=== PATIENT | male | born 2000 | race Caucasian/White ===

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

== ENCOUNTER 2023-11-06 17:40 | Emergency (ER) | payer SELFPAY ==
--- OUTSIDE RECORDS SUMMARY | 2023-11-06 17:46 | XMS REPORT | Continuity of Care Document ---
Author Name Unknown Address [address] [facility] [address] [id number] [facility] Address [address] [facility] [address] [place] [address] Care Team Providers Care Gray Tender Name Role Phone Unavailable Unavailable Unavailable Payers Payer Name Policy Type Policy Number Effective Date Expirati on Date Source Encounters Start Date/Time End Date/Time Encounter Type Admission Type Attending Clinicians Care Facility Care Department Encounter ID Source 2022-05-13 11:14:23 Outpatient [facility] [id number] [facility] 2022-03-07 15:36:00 2022-03-07 15:36:00 Outpatient Dayanna Denton [facility] [id number] [facility]
[2023-11-06] MEDS ORDERED: CYCLOBENZAPRINE 10 MG TAB ONE (18:03)
[2023-11-06] MEDS ORDERED: HYDROCODONE/APAP 5/325 MG TAB ONE (18:03)
--- NOTE | 2023-11-06 19:03 | RAD REPORT ---
EXAM DESCRIPTION: RAD - Shoulder Right 2 View - 11/06/2023 6:21 pm CLINICAL HISTORY: Right shoulder pain FINDINGS: No fracture or dislocation is seen. Small nonspecific sclerotic density right humeral head
--- NOTE | 2023-11-06 19:05 | RAD REPORT ---
EXAM DESCRIPTION: RAD - Lumbar Spine 3 Views - 11/06/2023 6:20 pm CLINICAL HISTORY: Back pain FINDINGS: No fracture or dislocation is seen. No significant bone or joint abnormality is seen Large amount stool throughout the colon
--- NOTE | 2023-11-06 19:51 | EDPHYS ---
Physician Documentation [facility] Name: Ranulfo Clifton Jr Age: 23 yrs Sex: Male : 2000 Arrival Date: 11/06/2023 Time: 17:40 Bed IW1 Private MD: ED Physician Brandon Ramirez HPI: 11/05 23:21 This 23 yrs old Male presents to ER via Ambulatory with complaints of Arm Pain, Back kb Pain, Shoulder Pain. 23:21 Patient is a 23-year-old male who presents for right shoulder pain and low back pain kb that started 1 week ago. States pain is only with movement. States he does not remember any particular injury but does lift heavy objects at work. Full range of motion. Denies numbness or tingling to lower extremities. Ambulates with steady gait.. Historical: - Allergies: 17:58 No Known Allergies; ko1 - Home Meds: 17:58 None [Active]; ko1 - PMHx: 17:58 None; ko1 - PSHx: 17:58 None; ko1 - Immunization history:: Adult Immunizations unknown. - Infectious Disease History:: Denies. - Social history:: Smoking status: Patient denies any tobacco usage or history of. ROS: 19:47 Constitutional: As per HPI kb Exam: 21:52 Constitutional: This is a well developed, well nourished patient who is awake, alert, kb and in no acute distress. Head/Face: Normocephalic, atraumatic. ENT: Moist Mucous membranes Cardiovascular: Regular rate Respiratory: Respirations even and unlabored. No increased work of breathing. Talking in full sentences Abdomen/GI: Soft, non-tender. No distention Skin: Warm, dry with normal turgor. Normal color. Neuro: Awake and alert, GCS 15, oriented to person, place, time, and situation. Moves all extremities. Normal gait. 21:52 Musculoskeletal/extremity: Extremities: grossly normal except: noted in the anterior aspect of right shoulder: pain, 23:21 Back: pain, that is mild, of the lumbar area, kb Vital Signs: 17:56 BP 138 / 88; Pulse 82; Resp 16; Temp 98; Pulse Ox 99% ; ko1 19:48 BP 126 / 72; Pulse 78; Resp 18; Pulse Ox 98% ; ko1 MDM: 17:56 Patient medically screened. kb 23:21 Differential diagnosis: closed fracture, Strain sprain. Data reviewed: vital signs, kb nurses notes. Counseling: I had a detailed discussion with the patient and/or guardian regarding the historical points, exam findings, and any diagnostic results supporting the discharge/admit diagnosis, radiology results, the need for outpatient follow up, a family practitioner, to return to the emergency department if symptoms worsen or persist or if there are any questions or concerns that arise at home. 11/05 18:01 Order name: Lumbar Spine (3 Views) XRAY; Complete Time: 19:08 kb 11/05 18:01 Order name: Shoulder Right (2 View) XRAY; Complete Time: 19:08 kb Administered Medications: 18:02 Drug: HYDROcodone-acetaminophen PO 5 mg-325 mg 1 tabs PO once Route: PO; ko1 18:45 Follow up: Response: No adverse reaction ko1 18:02 Drug: Cyclobenzaprine PO 10 mg PO once Route: PO; ko1 18:45 Follow up: Response: No adverse reaction ko1 Disposition: 19:47 I was immediately available on-site in the Emergency Department for consultation in the ms3 care of the patient. Disposition Summary: 11/06/23 19:51 Discharge Ordered Notes: Location: Home kb Condition: Stable(11/06/23 19:51) kb Diagnosis - Pain in right shoulder kb - Low back pain kb Followup: kb - With: Emergency Department - When: As needed - Reason: Worsening of condition Followup: kb - With: Private Physician - When: 2 - 3 days - Reason: Recheck today's complaints, Continuance of care, Re-evaluation by your physician Discharge Instructions: - Discharge Summary Sheet kb - Musculoskeletal Pain kb Forms: - Medication Reconciliation Form kb - Antibiotic Education kb - Prescription Opioid Use kb - Patient Portal Instructions kb - Leadership Thank You Letter kb Prescriptions: - Diclofenac Sodium 75 mg Oral tablet, delayed release (enteric coated) - take 1 tablet ORAL route 2 times per day As needed; 30 tablet; Refills: 0, kb Product Selection Permitted - orphenadrine citrate 100 mg Oral Tablet Sustained Release - take 1 tablet ORAL route 2 times per day As needed; 20 tablet; Refills: 0, kb Product Selection Permitted Signatures: Dispatcher [employer] Elva Oconnor FNP-C FNP-Ckb Brandon Ramirez DO DO ms3 Taylor Melissa, RN RN ko1 Corrections: (The following items were deleted from the chart) 19:51 19:51 Fair kb kb
--- NOTE | 2023-11-06 19:51 | ER ---
Nurse's Notes [facility] Name: Ranulfo Clifton Jr Age: 23 yrs Sex: Male : 2000 Arrival Date: 11/06/2023 Time: 17:40 Bed IW1 Private MD: Diagnosis: Pain in right shoulder;Low back pain Presentation: 11/05 17:56 Chief complaint: Patient states: right arm cant move it well and when turning to the ko1 right, the left lower back hurts, going on for one week. Coronavirus screen: At this time, the client does not indicate any symptoms associated with coronavirus-19. Ebola Screen: No symptoms or risks identified at this time. Initial Sepsis Screen: Does the patient meet any 2 criteria? No. Patient's initial sepsis screen is negative. Does the patient have a suspected source of infection? No. Patient's initial sepsis screen is negative. Risk Assessment: Do you want to hurt yourself or someone else? Patient reports no desire to harm self or others. Onset of symptoms is unknown. 17:56 Method Of Arrival: Ambulatory ko1 17:56 Acuity: ADILENE 4 ko1 Triage Assessment: 17:58 General: Appears in no apparent distress. Behavior is calm, cooperative, appropriate ko1 for age. Pain: Complains of pain in right trapezius, right scapular area, left low back and right low back. Musculoskeletal: Circulation, motion, and sensation intact. Historical: - Allergies: 17:58 No Known Allergies; ko1 - Home Meds: 17:58 None [Active]; ko1 - PMHx: 17:58 None; ko1 - PSHx: 17:58 None; ko1 - Immunization history:: Adult Immunizations unknown. - Infectious Disease History:: Denies. - Social history:: Smoking status: Patient denies any tobacco usage or history of. Screenin:48 [facility] ED Fall Risk Assessment (Adult) History of falling in the last 3 months, ko1 including since admission No falls in past 3 months (0 pts) Confusion or Disorientation No (0 pts) Intoxicated or Sedated No (0 pts) Impaired Gait No (0 pts) Mobility Assist Device Used No (0 pt) Altered Elimination No (0 pt) Score/Fall Risk Level 0 - 2 = Low Risk Oriented to surroundings, Maintained a safe environment, Educated pt \T\ family on fall prevention, incl call for assistance when getting out of bed, Assessed \T\ reinforced patient's understanding of fall precautions, Provided non-skid footwear, Hourly rounding (assess needs \T\ fall precautionary measures) done, Used ambulatory aids as needed (educated on \T\ assisted with), Used gait belt as appropriate. Abuse screen: Denies threats or abuse. Denies injuries from another. Nutritional screening: No deficits noted. Tuberculosis screening: No symptoms or risk factors identified. Assessment: 19:48 Neuro: No deficits noted. ko1 Vital Signs: 17:56 BP 138 / 88; Pulse 82; Resp 16; Temp 98; Pulse Ox 99% ; ko1 19:48 BP 126 / 72; Pulse 78; Resp 18; Pulse Ox 98% ; ko1 ED Course: 17:45 Patient arrived in ED. im 17:56 Elva Womack FNP-C is PHCP. kb 17:56 Brandon Ramirez DO is Attending Physician. kb 17:58 Triage completed. ko1 17:58 Arm band placed on right wrist. Patient placed in waiting room, Patient notified of ko1 wait time. 18:22 Lumbar Spine (3 Views) XRAY In Process Unspecified. EDMS 18:22 Shoulder Right (2 View) XRAY In Process Unspecified. EDMS 19:48 Patient has correct armband on for positive identification. Provided Education on: meds.ko1 19:48 No provider procedures requiring assistance completed. Patient did not have IV access ko1 during this emergency room visit. Administered Medications: 18:02 Drug: HYDROcodone-acetaminophen PO 5 mg-325 mg 1 tabs PO once Route: PO; ko1 18:45 Follow up: Response: No adverse reaction ko1 18:02 Drug: Cyclobenzaprine PO 10 mg PO once Route: PO; ko1 18:45 Follow up: Response: No adverse reaction ko1 Medication: 19:48 VIS not applicable for this client. ko1 Outcome: 19:48 Discharged to home ambulatory, with family, ko1 19:48 Condition: stable 19:48 Discharge instructions given to patient, Instructed on discharge instructions, follow up and referral plans. medication usage, Demonstrated understanding of instructions, follow-up care, medications, Prescriptions given X 2, 19:51 Discharge ordered by . kb 19:54 Patient left the ED. ko1 Signatures: Dispatcher [facility] Elva Oconnor, ADMINISTRATIVE MANAGER-C ADMINISTRATIVE MANAGER-Taylor Church, RN RN ko1 Kiersten Perez
[2023-11-06 20:16] VITALS: BP 126/72; TEMP 98; O2SAT 98
== END 2023-11-06 19:54 | disposition home or self-care (01) ==
LOC: ER 17:40
DX: M25.511 Pain in right shoulder (principal); M54.50 Low back pain, unspecified
CPT/HCPCS: 72100; 99283

== ENCOUNTER 2024-11-03 21:17 | Emergency (ER) | payer SELFPAY ==
--- OUTSIDE RECORDS SUMMARY | 2024-11-03 21:19 | XMS REPORT | Continuity of Care Document ---
Author Name Unknown Address [address] [place] [address] [address] [place] [address] [facility] Address [address] [facility] [address] [place] [address] Care Team Providers Care Interior Painter Name Role Phone Unavailable Unavailable Unavailable Payers Payer Name Policy Type Policy Number Effective Date Expirati on Date Source Encounters Start Date/Time End Date/Time Encounter Type Admission Type Attending [facility] Care Facility Care Department Encounter ID Source 2022-05-13 11:14:23 Outpatient [facility] [id number] [facility] 2022-03-07 15:36:00 2022-03-07 15:36:00 Outpatient Dayanna Denton [facility] [id number] [facility]
[2024-11-03] MEDS ORDERED: LIDOCAINE 1% MPF 5 ML VIAL ONE (23:53)
--- NOTE | 2024-11-04 00:05 | EDPHYS ---
Physician Documentation [facility] Name: Ranulfo Clifton Jr Age: 24 yrs Sex: Male : 2000 Arrival Date: 11/03/2024 Time: 21:17 Bed 12 Private MD: ED Physician Adrian Cortez HPI: 11/04 01:10 This 24 yrs old Male presents to ER via Ambulatory with complaints of Cyst. sb4 01:13 Patient reports painful swollen area on right butt crack for about 1 month now. States sb4 that he just could not take the pain anymore. Does not think that it drained anything. Denies any prior episodes of this. Denies any fever or chills. Denies any medical problem. Historical: - Allergies: 11/03 21:32 No Known Allergies; jb4 - PMHx: :32 None; jb4 - PSHx: :32 None; jb4 - Immunization history:: Adult Immunizations not up to date. - Infectious Disease History:: Denies. - Social history:: Smoking status: Patient reports the use of cigarette tobacco products, smokes one-half pack cigarettes per day, Patient uses alcohol, occasionally. ROS: 11/04 01:13 Constitutional: Negative for fever, chills, and weight loss, sb4 Skin: Positive for abscess, of the gluteal cleft, All other systems are negative, Exam: 01:13 Head/Face: Normocephalic, atraumatic. Eyes: Extra-ocular motions intact. Periorbital sb4 areas with no swelling, redness, or edema. ENT: Mucous membranes moist. Respiratory: No increased work of breathing, no retractions or nasal flaring. Abdomen/GI: Soft, non-tender, no distension. 01:13 Constitutional: The patient appears alert, awake, uncomfortable, 01:13 Skin: abscess, that is small, of the gluteal cleft, with fluctuance, that is mild, Vital Signs: 11/03 21:30 BP 133 / 79; Pulse 90; Resp 16; Temp 97.4(TE); Pulse Ox 98% on R/A; Weight 72.57 kg jb4 (R); Height 5 ft. 8 in. ; Pain 2/10; 11/04 00:34 BP 128 / 75; Pulse 84; Resp 17 S; Pulse Ox 98% on R/A; ha1 11/03 21:30 Body Mass Index 24.33 (72.57 kg, 172.72 cm) jb4 11/03 21:30 Pain Scale: Adult jb4 Procedures: 01:13 I \T\ D: Incision and drainage was performed for an abscess of the gluteal cleft Prepped sb4 with Hibiclens. Anesthetized with 2 ml's 1% Lidocaine. Incised with #11 blade. Drained small amount bloody fluid. Dressing: sterile 4x4 gauze, the patient tolerated the procedure well. MDM: 11/03 21:42 Medical Screening Exam initiated sb4 11/04 01:13 Differential diagnosis: Pilonidal cyst, abscess, cellulitis. Data reviewed: vital sb4 signs, nurses notes, and as a result, I will discharge patient. Counseling: I had a detailed discussion with the patient and/or guardian regarding the historical points, exam findings, and any diagnostic results supporting the discharge/admit diagnosis, the need for outpatient follow up, for definitive care, to return to the emergency department if symptoms worsen or persist or if there are any questions or concerns that arise at home. 11/03 23:05 Order name: Incision \T\ Drainage Setup sb4 Administered Medications: 00:00 Drug: Lidocaine Infiltration (1 %) 5 ml 5 ml Infiltration once; to bedside {Note: ha1 ADMINISTERED BY CARE PROVIDER .} Volume: 5 ml; Route: Infiltration; 00:31 Follow up: Response: No adverse reaction ha1 00:20 Drug: Trimethoprim-Sulfamethoxazole PO (160 mg-800 mg (DS) 1 tablet PO once Route: PO; ha1 00:31 Follow up: Response: No adverse reaction ha1 Disposition: 02:23 Co-signature as Attending Physician, Adrian Cortez MD I reviewed the patient's care rt provided by the Advanced Practice Provider and agree with the diagnosis and treatment plan. Disposition Summary: 11/04/24 00:04 Discharge Ordered Notes: Location: Home sb4 Problem: new sb4 Symptoms: have improved sb4 Condition: Stable sb4 Diagnosis - Cutaneous abscess of buttock sb4 Followup: sb4 - With: Emergency Department - When: As needed - Reason: Fever > 102 F, Worsening of condition Discharge Instructions: - Discharge Summary Sheet sb4 - Skin Abscess, Cnax-to-Bezh sb4 - Incision and Drainage, Care After sb4 Forms: - Antibiotic Education sb4 - Patient Portal Instructions sb4 - Leadership Thank You Letter sb4 Prescriptions: - Bactrim DS 800-160 mg Oral Tablet - take 1 tablet ORAL route every 12 hours for 7 days; 14 tablet; Refills: 0, sb4 Product Selection Permitted Signatures: Gopal King, RN RN jb4 Dolores Chavez RN RN Lizette Man, PASteffanyC PASteffanyC sb4 Adrian Cortez MD MD rt
--- NOTE | 2024-11-04 00:05 | ER ---
Nurse's Notes [facility] Name: Ranulfo Clifton Jr Age: 24 yrs Sex: Male : 2000 Arrival Date: 11/03/2024 Time: 21:17 Bed 12 Private MD: Diagnosis: Cutaneous abscess of buttock Presentation: 11/03 21:30 Chief complaint: Patient states: I have a cyst on my tail bone that has been there for jb4 over a month and hasn't gotten better. Coronavirus screen: At this time, the client does not indicate any symptoms associated with coronavirus-19. Ebola Screen: No symptoms or risks identified at this time. Initial Sepsis Screen: Does the patient meet any 2 criteria? No. Patient's initial sepsis screen is negative. Does the patient have a suspected source of infection? No. Patient's initial sepsis screen is negative. Risk Assessment: Do you want to hurt yourself or someone else? Patient reports no desire to harm self or others. Onset of symptoms was October 04, 2024. Transition of care: patient was not received from another setting of care. 21:30 Method Of Arrival: Ambulatory jb4 21:30 Acuity: ADILENE 4 jb4 Triage Assessment: 21:32 General: Appears in no apparent distress. uncomfortable, Behavior is calm, cooperative, jb4 appropriate for age. Pain: Complains of pain in coccyx Pain does not radiate. Pain currently is 2 out of 10 on a pain scale. at worst was 9 out of 10 on a pain scale. Neuro: Level of Consciousness is awake, alert, obeys commands, Oriented to person, place, time, situation. Cardiovascular: Patient's skin is warm and dry. Respiratory: Airway is patent Respiratory effort is even, unlabored, Respiratory pattern is regular, symmetrical. Derm: Skin is intact, Skin is pink, warm \T\ dry. Musculoskeletal: Circulation, motion, and sensation intact. Range of motion: intact in all extremities. Historical: - Allergies: 21:32 No Known Allergies; jb4 - PMHx: 21:32 None; jb4 - PSHx: 21:32 None; jb4 - Immunization history:: Adult Immunizations not up to date. - Infectious Disease History:: Denies. - Social history:: Smoking status: Patient reports the use of cigarette tobacco products, smokes one-half pack cigarettes per day, Patient uses alcohol, occasionally. Screenin/23 00:31 [facility] ED Fall Risk Assessment (Adult) History of falling in the last 3 months, ha1 including since admission No falls in past 3 months (0 pts) Confusion or Disorientation No (0 pts) Intoxicated or Sedated No (0 pts) Impaired Gait No (0 pts) Mobility Assist Device Used No (0 pt) Altered Elimination No (0 pt) Score/Fall Risk Level 0 - 2 = Low Risk Oriented to surroundings, Maintained a safe environment, Hourly rounding (assess needs \T\ fall precautionary measures) done. Abuse screen: Denies threats or abuse. Denies injuries from another. Nutritional screening: No deficits noted. Tuberculosis screening: No symptoms or risk factors identified. Assessment: 00:31 Reassessment: Patient and/or family updated on plan of care and expected duration. Pain ha1 level reassessed. Patient is alert, oriented x 3, equal unlabored respirations, skin warm/dry/pink. Patient states symptoms have improved. Vital Signs: 11/03 21:30 BP 133 / 79; Pulse 90; Resp 16; Temp 97.4(TE); Pulse Ox 98% on R/A; Weight 72.57 kg jb4 (R); Height 5 ft. 8 in. ; Pain 2/10; 11/04 00:34 BP 128 / 75; Pulse 84; Resp 17 S; Pulse Ox 98% on R/A; ha1 11/03 21:30 Body Mass Index 24.33 (72.57 kg, 172.72 cm) jb4 11/03 21:30 Pain Scale: Adult 4 ED Course: 11/03 21:19 Patient arrived in ED. mr 21:32 Triage completed. jb4 21:32 Arm band placed on right wrist. jb4 21:41 Lizette Petersen PA-C is PHCP. sb4 21:41 Adrian Cortez MD is Attending Physician. sb4 22:00 Patient has correct armband on for positive identification. Bed in low position. Call ha1 light in reach. Side rails up X 1. 11/04 00:32 No provider procedures requiring assistance completed. Patient did not have IV access ha1 during this emergency room visit. 00:33 Provided Education on: FOLLOW UP WITH PCP. WOUND CARE . ha1 Administered Medications: 00:00 Drug: Lidocaine Infiltration (1 %) 5 ml 5 ml Infiltration once; to bedside {Note: ha1 ADMINISTERED BY CARE PROVIDER .} Volume: 5 ml; Route: Infiltration; 00:31 Follow up: Response: No adverse reaction ha1 00:20 Drug: Trimethoprim-Sulfamethoxazole PO (160 mg-800 mg (DS) 1 tablet PO once Route: PO; ha1 00:31 Follow up: Response: No adverse reaction ha1 Medication: 00:33 VIS not applicable for this client. ha1 Outcome: 00:04 Discharge ordered by MD. matamoros 00:32 Discharged to home ambulatory, ha1 00:32 Condition: stable 00:32 Discharge instructions given to patient, Instructed on discharge instructions, follow up and referral plans. medication usage, Demonstrated understanding of instructions, follow-up care, medications, 00:34 Patient left the ED. ha1 Signatures: Nimisha Marti, Reg Reg Gopal King, RN RN jb4 Dolores Chavez RN RN ha1 Lizette Petersen PA-C PA-C sb4
[2024-11-04] MEDS ORDERED: SMZ./TMP. 800/160 MG TABLET ONE (00:23)
[2024-11-04 00:53] VITALS: TEMP 97.4; O2SAT 98
[2024-11-04 00:55] VITALS: BP 128/75
== END 2024-11-04 00:34 | disposition home or self-care (01) ==
LOC: ER 21:17
PROC: 0H98XZZ Drainage of Buttock Skin, External Approach (ICD-10-PCS; principal; 2024-11-04)
DX: L02.31 Cutaneous abscess of buttock (principal)
CPT/HCPCS: 99283; J2003

== ENCOUNTER 2025-03-20 04:43 | Inpatient (IN) | payer SELFPAY ==
--- OUTSIDE RECORDS SUMMARY | 2025-03-20 07:58 | XMS REPORT | Continuity of Care Document ---
Author Name Unknown Address [address] [place] [address] [address] [place] [address] [facility] Address [address] [facility] [address] [place] [address] Care Team Providers Care Broadcast Operations Manager Name Role Phone Unavailable Unavailable Unavailable Payers Payer Name Policy Type Policy Number Effective Date Expirati on Date Source Encounters Start Date/Time End Date/Time Encounter Type Admission Type Attending [facility] Care Facility Care Department Encounter ID Source 2022-05-13 11:14:23 Outpatient [facility] [id number] [facility] 2022-03-07 15:36:00 2022-03-07 15:36:00 Outpatient Dayanna Denton [facility] [id number] [facility]
[2025-03-20] MEDS ORDERED: MORPHINE 2 MG/ML SYR IV PRN (08:24)
[2025-03-20 08:37] VITALS: BMI 35.4
[2025-03-20] MEDS: NA CHLORIDE 0.9% 1,000 ML IV SCH (09:02)
[2025-03-20] MEDS: CIPROFLOXACIN 400mg IV 400 MG/200 ML BAG IV SCH ×2 (09:02→20:29)
[2025-03-20] MEDS: LIDOCAINE JELLY 2% 5 ML SYRINGE TOP ONE (13:28)
[2025-03-20] MEDS ORDERED: KETOROLAC 30 MG/ML INJ ONE (14:09)
[2025-03-20] MEDS ORDERED: LIDOCAINE 1% MPF 5 ML VIAL ONE (14:09)
[2025-03-20] MEDS ORDERED: FENTANYL CITR 100 MCG/2 ML ONE (14:10)
[2025-03-20] MEDS ORDERED: MIDAZOLAM HCL 2 MG/2 ML INJ ONE (14:10)
[2025-03-20] MEDS: Ringers Lactate 1,000 ML IV ONE (14:42)
[2025-03-20] MEDS ORDERED: MORPHINE 10 MG/ML VIAL ONE (15:14)
--- NOTE | 2025-03-20 15:25 | P.BOP ---
Preoperative diagnosis: Perianal abscess Postoperative diagnosis: same, perirectal Primary procedure: EUA, anoscopy, rigid proctoscopy Secondary procedure: incision and drainage of perirectal/perianal abscess Estimated blood loss: <10cc Specimen: pus Findings: pus Anesthesia: General Complications: None Transferred to: Recovery Room Condition: Good
[2025-03-20] MEDS ORDERED: ONDANSETRON 4 MG/2 ML VIAL IV PRN (15:31)
[2025-03-20] MEDS ORDERED: HYDROCODONE/APAP 5/325 MG TAB PO PRN (15:32)
[2025-03-20 16:31] VITALS: O2SAT 95
[2025-03-20] MEDS: METRONIDAZOLE 500mg IVPB 500 MG/100 ML BAG IV SCH (17:32)
[2025-03-20] MEDS: HYDROCODONE/APAP 5/325 MG TAB PO PRN (19:23)
--- NOTE | 2025-03-20 21:24 | HP ---
Date of Admission: 03/20/2025 Diagnosis: Perianal/perirectal abscess. History Of Present Illness: This is a case of a 24-year-old patient comes to us with perianal tender ness. The patient went to the ER last night, but at [facility], another institution, diagnosed with perianal abscess. Not sure if it is related to also pilonidal cyst since he claimed he had them in the past. When the CAT scan was done, noticed a fluid collection near the area, cannot rule out if it is connected to the anus or rectum. So, patient did not have any surgical options in that area . So, the patient was transferred to our institution for an EUA anoscopy and perianal/perirectal abs cess drainage. Past Medical History: Buttock abscess. It was drained in October of this year at [facility]. It was done a t bedside. Allergies: NONE. Medications: None. Social History: He does not smoke. He does not drink alcohol. Family History: Noncontributory. Review of Systems: No shortness of breath. No chest pain. No nausea. No dysuria, hematuria, hematochezia, melena. No recent traveling out of the country. No family member sick at home. The patient has just perianal tenderness and swollen and drainage. 10 points are otherwise unremarkable. Physical Examination: Vital Signs: Reviewed. General: The patient is awake and alert. HEENT: Pupils are equal and reactive. Anicteric. Neck: Supple. Chest: Clear. Heart: S1, S2. Abdomen: Soft and depressible. No guarding or rebound or peritoneal signs. Extremities: Full range of motion. Peripheral pulses, dorsalis pedis, and radialis x4. Neuro: Cranial nerves 2-12 grossly within normal limits. Integumentary: On the perianal region, patient has an area of drainage with a lump, tender; fluctuan ce present; and erythema, may be related to a perianal abscess. Due to the tenderness, the physical examination is somehow limited. That is why we are going to do examination under anesthesia. Laboratory Data: Blood work, we will review the blood work from [place]. Also, the CAT scan from [facility] shows perianal abscess. Assessment: A 24-year-old patient with perianal/perirectal abscess. The benefits, alternatives, and risks of exam under anesthesia, anoscopy, proctoscopy, re-proctoscopy, and incision and drainage of perianal/perirectal abscess was fully explained, which include, but not limited to infection, bleedin g, damage to adjacent structures, anesthesia complication, recurrence, anal stricture and incontinenc e, [place], and even . He also understands this may not relieve symptoms. He might need more than 1 surgical intervention. The patient was booked in OR. JASON/LENA Voice ID: [id number]
--- NOTE | 2025-03-21 00:03 | OP ---
Date of Procedure: 03/20/2025 Surgeon: Santosh Truong MD Preoperative Diagnosis: Rectal and perianal abscess. Postoperative Diagnosis: Rectal and perianal abscess. Procedures: EUA, anoscopy, rigid proctoscopy, incision and drainage of perirectal abscess. Estimated Blood Loss: Less than 10 cc. Specimen: Pus pocket that contract from the area around the anus into the distal part of the rectum. Does not come through the rectum. Anesthesia: General plus local. Complications: None. Indications: This is a case of a 24-year-old patient, comes to us, admitted from [facility] due to a perianal abscess. The benefits, alternatives, and risks of EUA, anoscopy, proctoscopy, and the perianal abscess fully explained, which include, but not limited to infection, bleeding, damage to a djacent structures, anesthesia complication, bowel perforation, OK, and even . He also understa nds this could be a perirectal abscess, which have the same risks. He signed the consent. Description Of Procedure: The patient was brought to the operating room, placed in supine position. Anesthesia was induced without complication. The patient was placed in lateral position. Time-out was called. Perianal area was prepped and draped in usual sterile fashion. Rectal examination was d one followed by rigid proctoscopy, limited by amount of stool present about 12 cm. In that area, I w as trying to see connection between this abscess and the rectum. I can feel the abscess behind it, b ut I cannot see the connection. So, at that moment, I placed the endoscope once again, made an incis ion in the abscess on the perianal region, tracked down into the perirectal area, but the abscess reid s not come through and through the rectum. The area was profusely irrigated. Hemostasis obtained. The area was packed with iodoform quarter of an inch. Local anesthetic was applied. The patient migue erated the procedure well. The patient sent to recovery in stable condition. JASON/LENA Voice ID: [id number] Report ID: [id number]
[2025-03-21 05:34] LABS: Absolute Lymphocytes (CBC) 1.1 K/uL (0.7-4.9); Hematocrit 42.0 % (39.6-49.0); Hemoglobin 14.8 g/dL (13.6-17.9); MCH 31.0 pg (27.0-35.0); MCHC 35.4 g/dL (32.0-36.0); MCV 87.7 fL (80-100); MPV 8.4 fL (7.6-11.3); Nucleated RBC Absolute Count 0.0 (0-0); Nucleated Red Blood Cells % 0.0 % (0-0); RBC Red Blood Cell Count 4.79 M/uL (4.33-5.43); White Blood Count 13.70 thou/uL (4.3-10.9)
[2025-03-21 05:48] LABS: Anion Gap 8.3 mEq/L (5.0-15.0); BUN Blood Urea Nitrogen 10.0 mg/dL (7-18); Glucose Level 118.0 mg/dL (74-106); Potassium 4.3 mEq/L (3.5-5.1)
--- NOTE | 2025-03-21 09:55 | P.DS ---
Admission Date: 03/20/25 Discharge Date: 03/21/25 Disposition: ROUTINE DISCHARGE Discharge Condition: GOOD Hospital Course: unremarkable Vital Signs/Physical Exam: Temp Pulse Resp BP Pulse Ox 97.6 F 74 18 117/65 95 03/21/25 04:00 03/21/25 04:00 03/21/25 04:00 03/21/25 04:00 03/21/25 04:00 General: Alert, In no apparent distress, Oriented x3 HEENT: PERRLA Neck: Supple Respiratory: Normal air movement Cardiovascular: No edema Gastrointestinal: Soft and benign Integumentary: Other (intact surgical site.) Neurological: Normal speech Laboratory Data at Discharge: WBC 13.70 thou/uL (4.3-10.9) H 03/21/25 05:05 Hgb 14.8 g/dL (13.6-17.9) 03/21/25 05:05 Hct 42.0 % (39.6-49.0) 03/21/25 05:05 Plt Count 255 thou/uL (152-406) 03/21/25 05:05 Sodium 141 mEq/L (136-145) 03/21/25 05:05 Potassium 4.3 mEq/L (3.5-5.1) 03/21/25 05:05 BUN 10 mg/dL (7-18) 03/21/25 05:05 Creatinine 0.86 mg/dL (0.70-1.30) 03/21/25 05:05 Glucose 118 mg/dL (74-106) H 03/21/25 05:05 Home Medications: NK [No Home Meds] 03/20/25 Physician Discharge Instructions: 06/18" iodoform packing to perianal area daily. Pt has done it before and between him and his family, they feel comfortable with the dressing changes. May take a shower with dressing off Diet: Regular Followup: Santosh Truong MD [ACTIVE - CAN ADMIT] - 1 Week
[2025-03-21] MEDS: MORPHINE 2 MG/ML SYR IV PRN (10:57)
[2025-03-21 12:51] VITALS: BP 116/80; TEMP 97.4
== END 2025-03-21 15:01 | disposition home or self-care (01) | DRG 346 ==
LOC: 2ND 04:43 → UNDOADMIN 04:43 → 2ND 15:26
PROVIDERS: ADMIT Surgery; ATTEND Surgery
PROC: 0D9Q0ZZ Drainage of Anus, Open Approach (ICD-10-PCS; 2025-03-20)
PROC: 0D9P0ZZ Drainage of Rectum, Open Approach (ICD-10-PCS; principal; 2025-03-20 16:45)
DX: K61.0 Anal abscess (principal); K61.1 Rectal abscess
CPT/HCPCS: 36415; 80048; 85025; 87070; 87075; 87205; 88304; 94010; J0744; J1100; J1885; J2003; J2250; J2270; J2704; J3010; J7030; J7120